=== PATIENT | female | born 1930 | race Caucasian/White ===

== ENCOUNTER 2016-11-28 17:50 | Inpatient (IN) | payer MEDICARE ==
[~2016-11-28] VITALS: Ht 152.4 cm; Wt 72.3 kg
--- NOTE | ~2016-11-28 | HP ---
PATIENT'S NAME: BASIA LACKEY [facility] AGE: 86 Y [address] ROOM: [place] [address] LOCATION: GPCU ADMIT DATE: 11/28/2016 History & Physical DISCHARGE DATE: FAMILY PHYSICIAN: JILLIAN CHAMBERS MD ATTENDING PHYSICIAN: JILLIAN CHAMBERS DATE OF SERVICE: CHIEF COMPLAINT: Shortness of breath. HISTORY OF PRESENT ILLNESS: The patient is an 86-year-old white female with a known hypertension, coronary disease, and atrial fibrillation who in the last couple days became more short of breath. There was some question as to whether she dropped back on her diuretics. She was taking it sounds like 2 Dyazide a day, but dropped back to one recently. She was seen in the emergency room Dr. Vásquez, see ER note. I reviewed her EKG that shows atrial fibrillation, rate controlled, no acute changes. I reviewed her chest x-ray that shows cardiomegaly but no ulises signs of severe CHF. Her BNP here was 478. Her white count is 5600, hemoglobin 13.9. PT and INR normal. Cardiac enzymes negative for acute TX. Potassium 3.5, sodium 137, BUN of 16, creatinine 1.4. At this point, we will admit to the hospital with a diagnosis of flare, congestive heart failure, probably acute on chronic diastolic. I asked them to go to Cardiology in the morning. I have ordered IV Lasix for the morning, we will continue her home medications. Place her on Lovenox to prevent DVT and order an echocardiogram for the morning. She and her son understand this plan and wished to proceed. The patient when I see her feels better after coming to the emergency room. She is not complaining of chest pain at this point. MEDICINES: Have been reviewed. ALLERGIES: SEE NURSE'S NOTES. PREVIOUS OPERATIONS: See old records including stent placement in the past for coronary artery disease. See recent cath reports. SOCIAL HISTORY: Does not smoke. PATIENT'S NAME: BASIA LACKEY [facility] AGE: 86 Y [address] ROOM: [place] [address] LOCATION: GPCU ADMIT DATE: 11/28/2016 History & Physical DISCHARGE DATE: FAMILY PHYSICIAN: JILLIAN CHAMBERS MD ATTENDING PHYSICIAN: JILLIAN CHAMBERS FAMILY HISTORY: Noncontributory. REVIEW OF SYSTEMS: Positive for the above. PHYSICAL EXAMINATION: GENERAL: Blount-haired female who appears her stated age. Sitting quietly in the emergency room. VITAL SIGNS: Her blood pressure is 180/70, pulse is 80 and regular, respirations 12. Her O2 saturation on room air is normal. Temp is normal. HEENT: Shows she wears glasses. Pupils react to light. TMs not visualized. Posterior pharynx clear. NECK: Unremarkable. I do not see any JVD. Thyroid enlarged. I did not listen for carotid bruit. LUNGS: Clear anteriorly. HEART: Shows a regular rhythm without murmur. BREASTS: Exam not done. ABDOMEN: Soft without point tenderness or mass. PELVIC/RECTAL: Exam not done. EXTREMITIES: Unremarkable. Just a trace edema in her ankles. NEUROLOGIC: Grossly intact without lateralizing signs. Cranial nerves intact. Mood is normal for age. ASSESSMENT: 1. Increasing shortness of breath/dyspnea on exertion secondary to flare of congestive heart failure, acute on chronic diastolic. 2. Mild hypokalemia. 3. Atrial fibrillation. 4. Hypertension, essential. 5. Coronary artery disease with stent placed in the past. PLAN: As above. JILLIAN CHAMBERS MD SPRAY PILOT/modl /[id number] D: [id number] T: [id number] HISTORY & PHYSICAL
--- NOTE | ~2016-11-28 | DS ---
PATIENT'S NAME: BASIA LACKEY [facility] AGE: 86 Y [address] ROOM: [place] [address] LOCATION: GPCU ADMIT DATE: 11/30/2016 Discharge Summary DISCHARGE DATE: 12/01/2016 FAMILY PHYSICIAN: Fish Chambers MD ATTENDING PHYSICIAN: Fish Chambers FINAL DIAGNOSES: 1. Shortness of breath secondary to exacerbation of diastolic congestive heart failure, acute on chronic. 2. Hypertension, essential. 3. Atrial fibrillation. HOSPITAL COURSE: The patient was admitted with increasing shortness of breath. In the emergency room, acute myocardial infarction was ruled out. Because of her shortness of breath with exertion, she was admitted to the hospital, and at my request, she was seen by Dr. Charlie Colbert, victim witness administrator, her echocardiogram was noted. She improved and lost weight here with IV diuresis. Her blood pressure was up the day prior to dismissal, so she stayed an extra day. Prior to going home, her shortness of breath has improved. Her weight has come down. She has no chest pain. She is dismissed on the med list shown. She is asked to see me back in the office in 2 weeks. She is to call earlier if she has shortness of breath or chest pain. She is dismissed on a 2 g sodium diet and activity as tolerated. FISH CHAMBERS MD MONITORING SPECIALIST/modl /[id number] d: 12/01/16 2350 t: 12/07/16 1835, DISCHARGE SUMMARY
--- NOTE | ~2016-11-28 | ER ---
PATIENT'S NAME: BASIA LACKEY [facility] AGE: 86 Y [address] ROOM: [place] [address] LOCATION: GPCU ADMIT DATE: 11/28/2016 ER/Outpatient Report DISCHARGE DATE: FAMILY PHYSICIAN: JILLIAN CHAMBERS MD ATTENDING PHYSICIAN: JILLIAN CHAMBERS Time of Arrival: 1750 hours. Time of Evaluation: 1805 hours. CHIEF COMPLAINT: This is an 86-year-old female with multiple medical problems. She is in with complaint of chest discomfort. HISTORY OF PRESENT ILLNESS: The patient reports that she has had an exertional chest pressure or tightness for the past 24 hours. She states that getting up to exert herself, she can walk about 20 steps and then she has to rest due to shortness of breath. PAST MEDICAL HISTORY: Significant for congestive heart failure. She has recently decreased the dose of her diuretic. She also has a history of coronary artery disease, previous cardiac stents, hypertension, and atrial fibrillation. CURRENT MEDICATIONS: See list. REVIEW OF SYSTEMS: She states that for the past week, she has not felt well, been slightly more short of breath than usual. SOCIAL HISTORY: She is a nonsmoker. PHYSICAL EXAMINATION: GENERAL: An alert, elderly female, in no acute distress. VITAL SIGNS: Stable. SKIN: Warm and dry. Color is normal. HEAD, EARS, EYES, NOSE, AND THROAT: Normal. NECK: Supple. She had mild jugular venous distention. HEART: She had irregular rhythm without murmur. LUNGS: She had rales audible in the right base. ABDOMEN: Soft and nontender. EXTREMITIES: Normal. NEUROLOGIC: Normal. PATIENT'S NAME: BASIA LACKEY [facility] AGE: 86 Y [address] ROOM: [place] [address] LOCATION: GPCU ADMIT DATE: 11/28/2016 ER/Outpatient Report DISCHARGE DATE: FAMILY PHYSICIAN: JILLIAN CHAMBERS MD ATTENDING PHYSICIAN: JILLIAN CHAMBERS LABORATORY DATA AND X-RAYS: EKG reveals atrial fib with a nonspecific intraventricular conduction delay and no acute ST or T-wave changes. Cardiac enzymes were negative. CBC was unremarkable. Comprehensive metabolic profile revealed slightly elevated creatinine of 1.4. Cardiac enzymes revealed CK-MB was 4.2, which is slightly elevated. Troponin was negative. BNP was elevated at 478. Chest x-ray is negative by my interpretation. EMERGENCY DEPARTMENT COURSE: Dr. Chambers was called, who arrived promptly, evaluated the patient, and made arrangements to admit the patient. ASSESSMENT: 1. Chest pain. 2. Congestive heart failure. PLAN: Admit to Dr. Chambers. BIENVENIDO CAMPOS MD JDB/modl /[id number] d: 11/30/16420 t: 11/30/16440, OUTPATIENT REPORT
--- NOTE | ~2016-11-28 | ECHO ---
Transthoracic Echocardiography Report (TTE) Demographics Patient Name BASIA LACKEY Date of Study 11/29/2016 Patient Number [id number] Visit Number [id number] Date of 1930 Room Number G6302 Accession Number [id number] Gender Female Age 86 year(s) Referring Filemon Guerra MD Assembler Knife Yvon Haney RVT Physician Wanda Quezada MD Physician Interpreting Fileomn Guerra MD Building Drafting Officer Physician Supervising Ordering Physician Filemon Guerra MD, MD/MLP Nurse Stress Chief Underwriter Conclusions Contractility Score Summary Normal Left Ventricular contractility was noted. Summary The estimated left ventricular ejection fraction is 55%. Mild to moderate concentric left ventricular hypertrophy. Diastolic assessment reveals Grade I diastolic dysfunction. Mildly reduced right ventricular function. Mild mitral annular calcification. Mild calcification of the mitral valve. Mild mitral regurgitation by color Doppler. The aortic valve is mildly sclerotic. There is trivial aortic regurgitation by color Doppler. Procedure Type of Study TTE procedure:2D Echocardiogram, M-Mode, Doppler , Color Doppler. Procedure Date Date: 11/29/2016 Start: 12:42 PM Study Location: Inpatient Portable Technical Quality: Adequate visualization Indications:Chest discomfort. Appropriate Use Criteria: 9 Patient Status: Routine HR: 52 bpm BP: 179/80 mmHg Allergies - Other:(corticosteroids, methylprednisolne). M-Mode/2D Measurements LV Diastolic Dimension: 3.23 cm LV Systolic Dimension: 2.54 cm LV Septum Diastolic: 1.77 cm LV PW Diastolic: 1.81 cm AO Root Dimension: 2.4 cm Cardiac Output: 2.21 l/min AV Cusp Separation: 1.7 cm RV Diastolic Dimension: 2.47 cm LVOT: 1.9 cm LVOT VTI: 15 cm RV Base: 1.66 cm LV Stroke volume: 42.51 ml RV Length: 5.09 cm TAPSE: 1.3 cm TDI-S': 14.5 cm/s Doppler Measurements AV Peak Velocity: 0.94 m/s MV Peak E-Wave: 0.58 m/s AV Peak Gradient: 3.53 mmHg MV Peak A-Wave: 0.81 m/s AV Mean Gradient: 2 mmHg MV E/A Ratio: 0.72 LVOT Peak Velocity: 0.67 m/s MV P1/2t: 62 msec PV Peak Velocity: 0.76 m/s E' Septal Velocity: 0.05 m/s PV Peak Gradient: 2.31 mmHg E' Lateral Velocity: 0.04 m/s A' Septal Velocity: 0.08 m/s A' Lateral Velocity: 0.08 m/s Findings Left Ventricle Mild to moderate concentric left ventricular hypertrophy. Diastolic assessment reveals Grade I diastolic dysfunction. Right Ventricle Normal right ventricle structure and function. Left Atrium Normal left atrial size. Right Atrium Normal right atrial size. Mitral Valve Mild mitral annular calcification. Mild calcification of the mitral valve. Mild mitral regurgitation by color Doppler. Aortic Valve The aortic valve is mildly sclerotic. There is trivial aortic regurgitation by color Doppler. Tricuspid Valve Normal tricuspid valve structure and function. Pulmonic Valve Mild pulmonic valve regurgitation by color Doppler. Pericardial Effusion No evidence of pericardial effusion. Miscellaneous Visualized portions of the aortic root and ascending aorta appear normal in size. Pleural Effusion No evidence of pleural effusion. Contractility Score LV regional wall motion:(0-Non visualized 1-Normal 2-Hypokinesis 3-Akinesis 4-Dyskinesis 5-Aneurysm) Signature dtt: Charlie Colbert (cardio) dtd: 11/29/16 1242 Physician Self Edit
--- NOTE | ~2016-11-28 | ESTC ---
Cardiac Perfusion Imaging Demographics Patient Name ZIYAD Mabry Gender Female Patient Number [id number] Race Visit Number [id number] [place] [id number] Room Number G6302 Accession Number [id number] Height 60 inches Date of 1930 Weight 159 pounds Physician Wanda Quezada MD Interpreting Filemon Guerra MD Date of study 11/30/2016 Physician Supervising /LISA BARDALES Technologist Shakila Manrique APRN Ordering Physician Filemon Guerra MD Stress Vrtiska Kevin RVT, animal health technician RDCS Stress ECG Reading Karly Nogueira Nurse Harley Mabry Physician PEDRITO stretch machine operator Procedure Type: Nuclear Stress Test:Pharmacological, Cardiolite Stress Test Procedure Start time: 11/30/2016 07:25 Indications: Chest discomfort and Hypertension. Risk Factors The patient risk factors include:prior PCI on 02/19/2016;treated hypercholesterolemia, treated hypertension and prior heart failure . Conclusions Summary Cardiolite SPECT imaging demonstrates homogenous uptake of radioactive tracer. No evidence of reversible defect and no evidence of underlying fixed defect. TID is grossly normal. Gated images demonstrate normal left ventricular systolic function without inducible wall motion abnormalities. LVEF is 59% Stress Protocols Resting ECG Normal sinus rhythm. Resting HR:63 bpm Resting BP:200/83 mmHg Pre-stress physical exam: Very Hypertensive in the Hospital. Stress Protocol:Pharmacologic Peak HR:7 bpm HR response: Appropriate Predicted HR: 133 bpm BP response: Appropriate % of predicted HR: 5 Reason for termination:Infusion complete ECG Findings No ECG changes suggestive of ischemia. Arrhythmias No rhythm abnormality. Symptoms No symptoms with Lexiscan infusion. Stress Interpretation Appropriate hemodynamic response to Lexiscan. No significant ST-T wave changes with Lexiscan. ECG portion is negative for ischemia by diagnostic criteria. Stress supervision and interpretation provided by Yolanda Brandt APRN . Imaging Results Summed scores - Summed stress score: 21 - Summed rest score: 19 - Summed difference score: 2 Stress ejection Ejection fraction:59 % EDV :116 ml ESV :48 ml Stroke volume :68 ml LV mass :129 gr Imaging Protocols Rest Stress Isotope:Tc99m Sestamibi IV Isotope: Tc99m Sestamibi IV Isotope dose:11.7 mCi Isotope dose:36.5 mCi Date:11/30/2016 06:56 Date:11/30/2016 08:23 Technique: SPECT Technique: Gated Supine SPECT Supine IV remains in place after procedure. Scan Time:30 minutes post injection Scan Time:45-60 minutes post injection Procedure Medications - Regadenoson (Lexiscan) 0.4 mg IV over 10-15 sec. I.V. 0.4 mg. Medical History Admission Data Admission date: 11/30/2016 Admission Time: 13:00 Hospital Status: Inpatient. Signatures dtt: Charlie Colbert (cardio) dtd: 11/30/16 0725 Physician Self Edit
--- NOTE | ~2016-11-28 | CON ---
PATIENT'S NAME: BASIA LACKEY [facility] AGE: 86 Y [address] ROOM: [place] [address] LOCATION: GPCU ADMIT DATE: 11/30/2016 Consultation DISCHARGE DATE: FAMILY PHYSICIAN: JILLIAN MUÑOZ MD ATTENDING PHYSICIAN: JILLIAN MUÑOZ REFERRING PHYSICIAN: Narciso Ocampo MD REFERRING PHYSICIAN: Jillian Muñoz MD. REASON FOR CONSULT: Chest discomfort and shortness of breath. HISTORY OF PRESENT ILLNESS: This is an 86-year-old female, well known to Dr. Ocampo with history of coronary artery disease, chronic kidney disease, and paroxysmal atrial fibrillation. She reports that she has been experiencing some exertional chest tightness for the past 24 hours. She states that getting up to exert herself, she can only walk about 20 steps and that she is more short of breath as well. She was found to be quite hypertensive in the emergency room. She was also noted to be in an atrial fibrillation at that time, but shortly converted. Her initial cardiac enzymes were normal. She had not been complaining of orthopnea, PND, or peripheral edema. Her O2 sats were 97% on room air. PAST MEDICAL HISTORY: 1. Paroxysmal atrial fibrillation. 2. High-risk medications-amiodarone. 3. Hypertension. 4. Coronary artery disease. 5. Chronic kidney disease. 6. History of DVT. 7. Nocturnal hypoxia wearing O2 at h.s. 8. Spinal stenosis. 9. Arthritis. 10. Anxiety. PAST SURGICAL HISTORY: 1. She has had a left heart catheterization, 02/22/2016, with PTCI at the posterolateral branch with stent. 2. Left heart catheterization, 11/30/2008 with a patent stent to the left circumflex, medical therapy recommended. 3. Left heart catheterization, 12/12/2005, PTCI and had a stent at the left circumflex. 4. Left heart catheterization, 07/10/2003, and PTCI and a stent to LAD. 5. Left heart catheterization 12/01/2002, nonsignificant coronary artery PATIENT'S NAME: BASIA LACKEY [facility] AGE: 86 Y [address] ROOM: [place] [address] LOCATION: GPCU ADMIT DATE: 11/30/2016 Consultation DISCHARGE DATE: FAMILY PHYSICIAN: JILLIAN MUÑOZ MD ATTENDING PHYSICIAN: JILLIAN MUÑOZ disease. 6. Back surgery. 7. Hysterectomy, 01/17/2013. 8. Bilateral cataract. 9. Right shoulder surgery. ALLERGIES: NONE TO MEDICATION. HOME MEDICATIONS: 1. Amiodarone 200 mg every day. 2. Aspirin 81 mg every day. 3. Lipitor 40 mg every day. 4. Plavix 75 mg every day. 5. Levothyroxine 50 mcg every day. 6. Maxzide 75 mg 1 tablet every day. 7. Valsartan-hydrochlorothiazide 320 mg 1/2 tablet daily. FAMILY HISTORY: Father at the age of 53, he of pneumonia. Mother at the age of 82, kidney failure and heart failure. She has a brother who has leukemia and another brother who had lung cancer. SOCIAL HISTORY: She is a lifelong nonsmoker. Does not use alcohol she reports. REVIEW OF SYSTEMS: HEENT: Head: No history of headache. Eyes: She wears corrective lenses. Ears: No problems with hearing, but she does wear bilateral hearing aids. Nose: No problems with epistaxis or rhinorrhea. Mouth: No gingival bleeding. Throat: Denies sore throat, hoarseness, or difficulty swallowing. PULMONARY: She has been a little more short of breath with wheezing. GI: Negative for nausea, vomiting, or diarrhea. No melena or hematochezia. No history of elevated liver enzymes or yellow jaundice. GENITOURINARY: Positive for urinary incontinence with leakage. No history of urinary tract infection. Skin: She does have problems with dermatitis at times. PSYCHIATRIC: She has problems with anxiety. PHYSICAL EXAMINATION: VITAL SIGNS: She is 5 feet tall, weighs 161 pounds, blood pressure was 216/94, heart rate 66, respirations 19, and temperature is 97.5. SKIN: Warm, dry, and pink. HEENT: Pupils equal, round, and react briskly. NECK: Soft and supple. No lymphadenopathy. PATIENT'S NAME: BASIA LACKEY [facility] AGE: 86 Y [address] ROOM: [place] [address] [facility] ADMIT DATE: 11/30/2016 Consultation DISCHARGE DATE: FAMILY PHYSICIAN: JILLIAN MUÑOZ MD ATTENDING PHYSICIAN: JILLIAN MUÑOZ LUNGS: Sounds now are clear with a few rales noted in the bases. CV: Regularly irregular. ABDOMEN: Soft. Bowel sounds are present. EXTREMITIES: No peripheral edema. ASSESSMENT: 1. Uncontrolled hypertension. Her medications were adjusted for better blood pressure control. 2. Chest pain. We will schedule her for a Lexiscan Cardiolite stress test as well as an echocardiogram. 3. Paroxysmal atrial fibrillation. She will continue with the amiodarone therapy. 4. Hypothyroidism. She is to continue with her current home medications. The assessment and plan, history of present illness, and physical exam are per Dr. Narciso Ocampo. Further recommendations will be forthcoming as information becomes available. We would like to thank Dr. Jillian Muñoz for allowing us to participate in this patient's care. CAN ZAVALA APRN FOR NARCISO OCAMPO MD TGP/modl /[id number] d: 11/30/16 1757 t: 12/07/16 1001, CONSULTATION REPORT
[~2016-11-28 17:50] MED LIST: ASPIRIN LO-DOSE81 MG PO; CORDARONE,PACE200 MG PO; LIPITOR40 MG PO; MAXZIDE-751 TAB PO; NORVASC5 MG PO; PLAVIX75 MG PO; VALSARTAN-HCTZ1 EAC3 PO
[2016-11-28 19:01] LABS: BASOPHIL # 0.1 K/uL (0.0-0.2); BASOPHIL % 1.3 %; EOSINOPHIL # 0.2 K/uL (0.0-0.5); EOSINOPHIL % 2.9 %; HEMATOCRIT 41.8 % (30.0-46.0); HEMOGLOBIN 13.9 g/dL (10.0-15.0); IMMATURE GRANULOCYTE % 0.2 %; LYMPHOCYTE # 1.1 K/uL (0.8-4.0); LYMPHOCYTE % 18.9 %; MCHC 33.3 gm/dL (32.0-36.5); MCV 93.3 fl (83.0-98.0); MONOCYTE # 0.4 K/uL (0.0-1.0); MONOCYTE % 7.4 %; MPV 9.6 fl (9.4-12.4); NEUTROPHIL # (ANC) 3.9 K/uL (1.8-7.8); NEUTROPHIL % 69.3 %; NRBC % 0 /100WBC (0-0.00); PLATELET COUNT 279 K/uL (150-450); RBC 4.48 M/uL (3.00-5.00); RDW-CV 13.4 % (11.9-14.6); WBC 5.6 K/uL (4.0-11.0)
[2016-11-28 19:09] LABS: PROTIME 10.1 SECONDS (9.6-11.1); PTT 27 SECONDS (25-32)
[2016-11-28 19:19] LABS: ALBUMIN 3.6 gm/dL (3.5-5.0); ALK PHOS 80 IU/L (33-138); ALT 38 IU/L (12-78); ANION GAP 14.5 (10.0-19.0); AST 32 IU/L (10-40); BLOOD UREA NITROGEN 16 mg/dL (6-24); CHLORIDE 101 mMol/L (96-110); CO2 25 mMol/L (22-32); CPK 134 IU/L (21-215); CREATININE 1.4 mg/dL (0.5-1.1); ESTIMATED GFR (MDRD EQUATION) 36; MAGNESIUM 1.9 mg/dL (1.3-2.6); POTASSIUM 3.5 mMol/L (3.7-5.1); SODIUM 137 mMol/L (135-145); TOTAL BILIRUBIN 0.5 mg/dL (0.0-1.5); TOTAL PROTEIN 6.8 g/dL (6.0-8.4)
[2016-11-28] MEDS ORDERED: LEVOTHROID (SY50 MCG PO (21:40)
[2016-11-28] MEDS ORDERED: OXYGEN M-15 INH (21:48)
--- NOTE | 2016-11-29 00:47 | NUR ---
Patient came into the ER with c/o increased shortness of breath with activity. Patient admitted to PCU with CHF. Patient able to ambulate from cart to bathroom to bed with 1 assist. Very short of breath with audible wheezes with exertion. Initial BP 216/94. Dr. Drake and Dr. Colbert notified. 40mg IV lasix given. See chart for additional orders. Patient has a history of A-fib, HTN, CHF, CAD, unstable angina, and history of heart caths with 4 stents. Family at bedside. Plan of care explained.
--- NOTE | 2016-11-29 04:52 | NUR ---
Significant Event: Alert and oriented X3. SBP 200's on admission. 40mg IV lasix given with order to start nitro if SBP didn't decrease. Nitro gtt started at 0020 at 5mcg/min. SBP now 130-160. Order to keep SBP less than 160. Tylenol at 2330 for c/o headache. Relief noted. 1900 urine output. Up with 1 assist. Does get short of breath with audible wheezes when ambulating. Slightly improved after IV lasix last night. RA. Patient is to wear 2L at night at home, but states she does not like it. Rested well. Follow up: Continue to monitor blood pressure, urine output and resp. status.
[2016-11-29 06:02] LABS: ALBUMIN 3.4 gm/dL (3.5-5.0); ANION GAP 12.7 (10.0-19.0); CALCIUM 8.9 mg/dL (8.5-10.5); CREATININE 1.4 mg/dL (0.5-1.1); MAGNESIUM 1.9 mg/dL (1.3-2.6); PHOSPHORUS 3.4 mg/dL (2.5-4.9); POTASSIUM 3.7 mMol/L (3.7-5.1)
--- NOTE | 2016-11-29 17:58 | NUR ---
Significant Event:Patient has been pretty comfortable throughout shift. Nitro to be weaned off, but SBP is labile. Family at bedside throughout shift. Had echo today. Had a small dose of Norvasc. Had 40 mEq of KCl this am and 30mEq later today. Follow up:Miguel tomorrow
--- NOTE | 2016-11-30 04:52 | NUR ---
Significant Event: Alert and oriented X3. RA. HR's 50's-60's. SBP 170's with first assessment. Nitro gtt continued at 5. Had to increase nitro gtt to 10 mcg/min at 2200 for SBP's in the 190's. Patient seems to get very anxious when family in room. Her son is upset with her decision to have lexiscan today and her decision to be a DNR. She also seems to be apprehensive to make her own decisions when family is present. After increasing the nitro family was asked to let her rest. Nitro was decreased back to 5 mics at 2320 and discontinued at 0230 due to order to try to wean off. SBP since discontinueing have been 120's -140's. Patient has been NPO since midnight for lexiscan today. Lung sounds clear/dim. Does still get short of breath with ambulation, but audible wheezes when ambulating have improved. Up with gait belt and 1 assist. Follow up: Lexiscan today. Continue to monitor blood pressure and resp. status.
[2016-11-30 04:58] LABS: ALBUMIN 3.2 gm/dL (3.5-5.0); ANION GAP 12.8 (10.0-19.0); CALCIUM 8.7 mg/dL (8.5-10.5); CREATININE 1.4 mg/dL (0.5-1.1); PHOSPHORUS 3.4 mg/dL (2.5-4.9); POTASSIUM 3.8 mMol/L (3.7-5.1)
--- NOTE | 2016-11-30 09:10 | NUR ---
VISITED WITH PATIENT ABOUT HER IMMUNIZATIONS. PATIENT STATES SHE WANTS TO "RECIND THE DNR". PRINTED HER ADVANCED DIRECTIVE FOR HER REVIEW. IT DOES STATE PATIENT WANTS TO HAVE EVERYTHING DONE UNTIL THERE IS A POINT THAT "NO HOPE" IS INEVITABLE. DID REVIEW WITH PATIENT. ALSO REPORTED TO EMILIE TOMPKINS, PATIENT'S NURSE ABOUT PATIENT WISHES.
--- NOTE | 2016-11-30 11:42 | NUR ---
Introduced self and care management services to patient. Lives in [place] with son and daughter in law. Denies concerns about going home on discharge, denies needs. Says someone is around most of the time if she needs assistance. Wine Merchant will follow.
--- NOTE | 2016-11-30 19:07 | NUR ---
PATIENT HAD STRESS TEST TODAY. STRESS TEST WAS NEGATIVE PER DR. OCAMPO. PATIENT RESTED AND SLEPT MOST OF DAY. AT 1700 PATIENT PATIENTS BLOOD PRESSURE 155/75 AMBULATED IN YIP BLOOD PRESSURE 206/93. CLONIDINE 0.1MG GIVEN AND WILL RECHECK IN APROX. AN HOUR. DR. CHAMBERS HERE AND AWARE OF BLOOD PRESSURE.
--- NOTE | 2016-12-01 05:26 | NUR ---
Significant Event:A/Ox3. Afebrile. HR 40-60s. SBP 100-170s, printed vitals on chart for MD. Medications changes at shift change per increased clonidine to 0.2mg BID (only gave 0.1mg to make a total of 0.2mg), started hydralazine 12.5mg Q8H (called MD for parameters d/t SBP 130s) no dose ever given, and increased maxid in the AM. HR steadily decreased throughout the night with the lowest being 40 patient did c/o of lightheadedness and dizziness, and dry mouth. Requested juice. Checked a blood sugar and got 124. Slightly unsteady with transfers. Follow up:Monitor HR/rhythm.
[2016-12-01] MEDS ORDERED: [UNRECOGNIZED DRUG - OTHER] PO (13:27)
[2016-12-01] MEDS ORDERED: K-TAB 10MEQ10 MEQ PO (13:28)
[2016-12-01] MEDS ORDERED: TRIAMTERENE-HC1 EAC1 PO (13:31)
[2016-12-01] MEDS ORDERED: TYLENOL325 MG PO (13:35)
[2016-12-01] MEDS ORDERED: NITROSTAT0.4 MG SL (13:37)
[2016-12-01] MEDS ORDERED: CATAPRES0.2 MG PO (13:39)
--- NOTE | 2016-12-01 15:08 | NUR ---
Introduced self and purpose of heart healthy education and care transitions. Calendar given, information reviewed, verbalized understanding.
--- NOTE | 2016-12-01 15:44 | NUR ---
d-dr darling pt dc i-nurse called cardio yodit Deutsch to ask about pulse 40s and got new order changes, iv dcd intact, sbp ok right now, pt amb adams 2 times and tolerated ok just alittle short of breath but 02 sat >90, hrs 60s now mostly, Appts made and cards given, info printed on meds to pt, ta took pt to daughter car per wc r-pt and daughter have no more questions p-out to car no problem
== END 2016-12-01 17:00 | disposition disaster alternative care site (69) | DRG 304 ==
LOC: GMED 17:50 → GPCU 20:04
PROVIDERS: Emergency Medicine; Internal Medicine Interventional Cardiology; ADMIT Family Medicine
DX: I16.0 Hypertensive urgency (principal); I50.33 Acute on chronic diastolic (congestive) heart failure; I48.0 Paroxysmal atrial fibrillation; G47.34 Idiopathic sleep related nonobstructive alveolar hypoventilation; I12.9 Hypertensive chronic kidney disease with stage 1 through stage 4 chronic kidney disease, or unspecified chronic kidney disease; R07.9 Chest pain, unspecified; I25.10 Atherosclerotic heart disease of native coronary artery without angina pectoris; Z95.5 Presence of coronary angioplasty implant and graft; E87.6 Hypokalemia; N18.9 Chronic kidney disease, unspecified; Z86.718 Personal history of other venous thrombosis and embolism; Z79.02 Long term (current) use of antithrombotics/antiplatelets; E03.9 Hypothyroidism, unspecified; Z66 Do not resuscitate; Z79.82 Long term (current) use of aspirin
CPT/HCPCS: A9270; A9500; G0378; J1650; J1940; J2785; J7050

== ENCOUNTER 2016-12-21 10:13 | Observation (INO) | payer MEDICARE ==
[~2016-12-21] VITALS: Ht 152.4 cm; Wt 74.2 kg
--- NOTE | ~2016-12-21 | CON ---
PATIENT'S NAME: BASIA LACKEY [facility] AGE: 86 Y [address] ROOM: [id number] [place], [place] [address] LOCATION: GPCU ADMIT DATE: 12/21/2016 Consultation DISCHARGE DATE: 12/24/2016 FAMILY PHYSICIAN: Fish Muñoz MD ATTENDING PHYSICIAN: Fish Muñoz DATE OF CONSULTATION: 12/23/2016 REFERRING PHYSICIAN: Charlie Colbert MD INDICATION: Dyspnea on exertion. HISTORY OF PRESENT ILLNESS: This is an 86-year-old female, admitted for chest pain, near syncope, and dyspnea on exertion. She reports near syncope twice, one of which occurred in the ER. There were no arrhythmias reported while she was on telemetry, but apparently she became hypotensive and symptoms improved with 1 L of fluid. She was subsequently taken to the slabbing machine operator and had a left heart catheterization, which was negative. CT of the chest was done, which showed no heart failure or pneumonia. There was a stable nodule noted since 2012. She has a history of CAD with PCI, PAF on amiodarone for several years and stopped on Wednesday, December 18, 2016. She also has history of diastolic heart failure with an EF last reported at 55%. She was previously in the hospital in November for a CHF exacerbation. Her BNP this admission was 184. The patient reports dyspnea on exertion for the last several years and slightly worse over the last year. Her daughter reports that she feels that her shortness of breath has worsened more so in the last few months. She has noted wheezing when she is out walking with her. She denies any history of asthma, COPD, or PE, DVT, or tobacco use. She has never tried inhalers. She was started on oxygen last year 2 L at night for CHF. She reports excessive daytime sleepiness and snoring. She has refused a sleep study in the past. She denies any hemoptysis, paroxysmal nocturnal dyspnea, orthopnea, or edema. She has an occasional cough with clear sputum. She has intermittent nasal drainage. PAST MEDICAL HISTORY: Includes paroxysmal AFib, off amiodarone now since December 18, 2016; hypertension; CAD; CKD; history of DVT; nocturnal hypoxia, wearing oxygen at night; chronic diastolic heart failure; spinal stenosis; arthritis; and anxiety. ALLERGIES: SEE NOV. MEDICATIONS: See NOV. PATIENT'S NAME: BASIA LACKEY [facility] AGE: 86 Y [address] [place] [facility] [place] [address] LOCATION: GPCU ADMIT DATE: 12/21/2016 Consultation DISCHARGE DATE: 12/24/2016 FAMILY PHYSICIAN: Fish Muñoz MD ATTENDING PHYSICIAN: Fish Muñoz FAMILY HISTORY: Her father at the age of 53 of pneumonia. Her mother at the age of 82 of kidney failure. She had a brother who of leukemia and another brother who of lung cancer. SOCIAL HISTORY: She denies any tobacco use. REVIEW OF SYSTEMS: A 12-point review of systems was negative except what is noted in the HPI. PHYSICAL EXAMINATION: VITAL SIGNS: Blood pressure 140/63, pulse 58, respirations 21, temperature 98.0, weight 74.2 kg. GENERAL: This is a well-developed, well-nourished, 86-year-old female, who is alert and oriented x3 and appears in no acute distress at the time of exam. HEENT: Head: Normocephalic and atraumatic. Eyes: Clear. NECK: Supple. No adenopathy. No carotid bruits or JVD. LUNGS: A few scattered wheezes. HEART: Regular rhythm with sinus bradycardia. No murmur, gallop, or rub. ABDOMEN: Soft, nontender, nondistended. Bowel sounds x4. EXTREMITIES: No cyanosis, clubbing, or edema. DIAGNOSTIC DATA: Sodium 137, potassium 3.7, bicarb 29, BUN 27, creatinine 1.3. WBC 6.4, hemoglobin 13.7, hematocrit 41, platelets 277. ASSESSMENT: 1. Dyspnea on exertion, probably multifactorial from elevated blood pressure and diastolic dysfunction. However, we cannot exclude reactive airway disease component. 2. Nocturnal hypoxia. 3. Excessive daytime sleepiness. 4. Suspected obstructive sleep apnea. 5. Hypertension, uncontrolled. PLAN: We will order PFTs and 6-minute walk to further evaluate other components of dyspnea on exertion other than the diastolic dysfunction and hypertension. We also checked an overnight oximetry on 2 L tonight to evaluate oxygen needs. Recommend more aggressive blood pressure control at this time. Thank you for the consult and opportunity to participate in the patient's care. PATIENT'S NAME: BASIA LACKEY [facility] AGE: 86 Y [address] ROOM: [address] [address] [facility] AD[facility] DATE: 12/21/2016 Consultation DISCHARGE DATE: 12/24/2016 FAMILY PHYSICIAN: Fish Muñoz MD ATTENDING PHYSICIAN: Fish Muñoz ALEC SCOTT APRN FOR PAUL OLIVEROS MD [facility]/modl /[id number] d: 01/20/17 0053 t: 01/28/17 1624, CONSULTATION REPORT
--- NOTE | ~2016-12-21 | HP ---
PATIENT'S NAME: BASIA LACKEY [facility] AGE: 86 Y [address] ROOM: [place] [address] LOCATION: GPCU ADMIT DATE: 12/21/2016 History & Physical DISCHARGE DATE: FAMILY PHYSICIAN: JILLIAN CHAMBERS MD ATTENDING PHYSICIAN: JILLIAN CHAMBERS DATE OF SERVICE: CHIEF COMPLAINT: Near passing out spell. HISTORY OF PRESENT ILLNESS: The patient is an 86-year-old white female from [place] of the [place], who is well known to me over the years. She presented to the emergency room today after having a near passing out spell at home and then dropped her blood pressure in the emergency room. Her nitroglycerin patch was taken off and she bought herself and taken into the hospital. She was just seen Wednesday in my office and also in the office of her middleware consultant, Dr. Charlie Colbert. At this point, she has been placed on PCU; when I see her, she is feeling fine with a blood pressure of 180/90. She has no focal neurologic abnormality. When I see her, she is not complaining of headache or chest pain. She had some chest pain in the emergency room. Long story short, from what I hear, she and Dr. Charlie Colbert are going to visit the catheterization lab tomorrow where she will undergo a diagnostic heart catheterization. I have reviewed the patient's labs and vital signs and ER workup at this point and defer to Dr. Colbert for further recommendations for evaluation and treatment. I do note that the patient's urine shows a few white blood cells, so I have asked the nurses to culture the urine and note that the patient will be placed on antibiotics at my request, Ceftin 250 mg twice a day, and we will adjust therapy based on her culture. She does not complain of symptoms of a UTI, but does have mild nausea. PAST MEDICAL HISTORY: Has been reviewed. See nurse's notes. MEDICATIONS: Have been reviewed. See nurse's notes. ALLERGIES: NOTED. NO ALLERGIES SPECIFIC TO CEPHALOSPORINS. SOCIAL HISTORY: Does not smoke. PATIENT'S NAME: BASIA LACKEY [facility] AGE: 86 Y [address] ROOM: [place] [address] LOCATION: GPCU ADMIT DATE: 12/21/2016 History & Physical DISCHARGE DATE: FAMILY PHYSICIAN: JILLIAN CHAMBERS MD ATTENDING PHYSICIAN: JILLIAN CHAMBERS FAMILY HISTORY: Noncontributory. IMMUNIZATIONS: Up to date. REVIEW OF SYSTEMS: HEENT: She wears glasses. She has had mild headache. No sore throat. No visual changes. ENDOCRINE: She is not diabetic. LUNGS: No history of asthma. HEART: As per the Cardiology notes. GI: Some nausea. No vomiting. No melena. No change in bowel habits. : As mentioned, no dysuria. EXTREMITIES: Pain of generalized osteoarthritis. NEUROLOGIC: No history of seizure, stroke, or syncope in the past. SKIN: No recent rashes. MENTAL STATUS: She is anxious about her health. PHYSICAL EXAMINATION: VITAL SIGNS: Pulse is 80, blood pressure 180/90, O2 saturation normal on room air, temperature is normal. HEENT: Pupils react to light. She wears glasses. TMs not visualized. Posterior pharynx is clear. NECK: I did not listen for carotid bruit. Thyroid enlarged. LUNGS: Clear. HEART: No murmur, gallop, or rub. ABDOMEN: Benign. No point tenderness. PELVIC/RECTAL: Not done. EXTREMITIES: Just trace edema in her ankles. NEUROLOGIC: Cranial nerves intact. No lateralizing signs. Mental status: She is anxious about her health. ASSESSMENT: 1. Near syncope x2, one time documented in the emergency room with no ulises cardiac arrhythmia. 2. Known coronary artery disease. 3. Hypertension, essential. PLAN: As above. PATIENT'S NAME: BASIA LACKEY [facility] AGE: 86 Y [address] ROOM: [id number] [place], [place] [address] LOCATION: GPCU ADMIT DATE: 12/21/2016 History & Physical DISCHARGE DATE: FAMILY PHYSICIAN: JILLIAN CHAMBERS MD ATTENDING PHYSICIAN: JILLIAN CHAMBERS JILLIAN CHAMBERS MD FRONT LINE SUPERVISOR/modl /[id number] D: [id number] T: [id number] HISTORY & PHYSICAL
--- NOTE | ~2016-12-21 | DS ---
PATIENT'S NAME: BASIA LACKEY [facility] AGE: 86 Y [address] ROOM: [facility] [place] [place], [place] [address] LOCATION: GPCU ADMIT DATE: 12/21/2016 Discharge Summary DISCHARGE DATE: 12/24/2016 FAMILY PHYSICIAN: Fish Muñoz MD ATTENDING PHYSICIAN: Fish Muñoz FINAL DIAGNOSES: 1. Near syncope. 2. Hypertension, essential, accelerated, present on admission. 3. Dyspnea on exertion, probably multifactorial. 4. Status post heart catheterization during admission. See Dr. Colbert's note. 5. Status post pulmonary function tests, read per Dr. Chou, see reports. 6. Generalized osteoarthritis. HOSPITAL COURSE: The patient was admitted after she had a near syncopal spell and had another spell in the emergency room. Please see emergency room notes. The patient was placed in PCU and seen at my request by her nurse healthcare manager Dr. Colbert, and then Dr. Colbert after getting her through a heart catheterization that was unremarkable asked that she be seen by Dr. Chou, the marketing performance analyst. I refer you to Dr. Colbert's catheterization notes and Dr. Chou's notes on the chart along with reports on the patient's pulmonary function tests. At the end of the day today, the patient is dismissed to home on diet as tolerated, activity as tolerated. She has been given instructions on using albuterol inhaler 2 puffs every 4 hours as needed. She is to follow up with Dr. Colbert in the office in a couple of weeks, see me in [address] Chou in a month. Here her evaluation at the heart catheterization showed no need for intervention. Rest of her workup is as noted. Prior to going home, when I see her, blood pressure is 148/70. She is asymptomatic. She ambulated in the hallways here without any near syncopal spells and has been documented here prior to dismissal that she is not having orthostatic hypotension. She and her daughter are comfortable sending her home. FISH MUÑOZ MD FIXED INCOME MANAGER/kenia PATIENT'S NAME: BASIA LACKEY [facility] AGE: 86 Y [address] ROOM: [place] [address] [facility] ADMIT DATE: 12/21/2016 Discharge Summary DISCHARGE DATE: 12/24/2016 FAMILY PHYSICIAN: Fish Muñoz MD ATTENDING PHYSICIAN: Fish Muñoz /[id number] d: 12/24/162052 t: 12/26/16 0928, DISCHARGE SUMMARY
--- NOTE | ~2016-12-21 | HP ---
PATIENT'S NAME: BASIA LACKEY [facility] AGE: 86 Y [address] ROOM: [address] [place], [place] [address] LOCATION: GPCU ADMIT DATE: 12/21/2016 History & Physical DISCHARGE DATE: FAMILY PHYSICIAN: JILLIAN CHAMBERS MD ATTENDING PHYSICIAN: JILLIAN CHAMBERS DATE OF SERVICE: REASON FOR ADMISSION: Lightheadedness, dizziness, presyncope. HISTORY OF PRESENT ILLNESS: This is an 86-year-old female who has been seen frequently in the clinic with complaints of shakiness and weakness. She has also been complaining of shortness of breath. She was seen last Wednesday for some of these symptoms and her amiodarone was stopped and she was initiated on Lasix and nitroglycerin patch. She felt good for about a day and then she has been having episodes where she will feel really shaky and lightheaded. This morning, her son took her blood pressure, it was in 140s/70s, she felt really good, then she got up and started doing some housework and called her son stating that she was not feeling very well. When he went to find her, the phone was still on sitting in her lap, she was very foggy, slow to respond, and pale. She has been complaining of some discomfort noted in the back between her shoulder blades, radiates down her left arm, some up into her neck and then she will have chest pressure. She has had some episodes of lightheadedness and dizziness and was placed on the Zio monitor and that result is still pending. On her last hospitalization, she had a stress test that did not show any provocable ischemia. When seen in the ER, her initial EKG showing a regular sinus rhythm, sinus bradycardia with heart rates in the 50s. She did have an episode where her blood pressure dropped into the 70s and she received a liter of fluid and now her blood pressures are in the 200 range. She denies orthopnea or PND. She has not had any problems with increased peripheral edema. She denies shortness breath at rest, but when she is walking, she is very short of breath and she does wheeze quite a bit. PAST MEDICAL HISTORY: 1. Paroxysmal atrial fibrillation, now off amiodarone. 2. Essential hypertension. 3. Coronary artery disease. 4. Chronic kidney disease. 5. History of DVT. 6. Nocturnal hypoxia, wearing O2 at h.s. 7. Spinal stenosis. 8. Arthritis. 9. Anxiety. PATIENT'S NAME: BASIA LACKEY [facility] AGE: 86 Y [address] ROOM: [id number] [place], [place] [address] [facility] ADMIT DATE: 12/21/2016 History & Physical DISCHARGE DATE: FAMILY PHYSICIAN: JILLIAN CHAMBERS MD ATTENDING PHYSICIAN: JILLIAN CHAMBERS PAST SURGICAL HISTORY: 1. Left heart catheterization, 02/22/2016, with PTCI and stenting of the posterolateral branch. 2. Left heart catheterization, 11/30/2008, with patent stent to the left circumflex and medical therapy recommended. 3. Left heart catheterization, 12/12/2005, with PTCI and stent, left circumflex. 4. Left heart catheterization, 07/10/2003, PTCA and stent to the LAD. 5. Left heart catheterization, 12/01/2002, showing non-significant coronary artery disease. 6. Back surgery. 7. Hysterectomy, 01/17/2013. 8. Bilateral cataract surgery. 9. Right shoulder surgery. ALLERGIES: NONE TO MEDICATION. HOME MEDICATIONS: 1. Nitroglycerin 0.4 mg transdermal patch, on in the morning and off in the evening. 2. Lasix 40 mg p.o. every a.m. 3. Aspirin 325 mg every day. 4. Atorvastatin 40 mg every day. 5. Levothyroxine 50 mcg every day. 6. Plavix 75 mg daily. 7. Triamterene and hydrochlorothiazide 37.5/25 mg every day. 8. Diovan HCT 320/25 mg once a day. FAMILY HISTORY: Father at the age of 53 of pneumonia. Mother at 82 of kidney failure. She had 1 brother who of leukemia and another brother who of lung cancer in his 50s. She has 3 sons and 6 daughters. She has never used tobacco, rarely drinks alcohol. REVIEW OF SYSTEMS: 12-point review was done with the following positives: CONSTITUTIONAL: Complains of being lightheaded, dizzy, weak. PULMONARY: She complaints of wheezing with walking and intermittent shortness of breath. NEUROLOGIC: She has had presyncope and syncopal episodes. PHYSICAL EXAMINATION: VITAL SIGNS: Blood pressure now is in the 200s/80s, her heart rate is 58-60, PATIENT'S NAME: BASIA LACKEY [facility] AGE: 86 Y [address] ROOM: [id number] [place], [place] [address] LOCATION: GPCU ADMIT DATE: 12/21/2016 History & Physical DISCHARGE DATE: FAMILY PHYSICIAN: JILLIAN CHAMBERS MD ATTENDING PHYSICIAN: JILLIAN CHAMBERS respirations are 24, and saturations are 94%. GENERAL: She does complain of some mild nausea. SKIN: Warm, dry, and pink. HEENT: Pupils equal, round, and react briskly. NECK: Soft and supple. No lymphadenopathy or thyromegaly. JVD is flat. LUNGS: Sounds are clear. CV: Regular with normal S1, S2, but is bradycardic. ABDOMEN: Soft. Bowel sounds are present. EXTREMITIES: No peripheral edema, no clubbing, and no cyanosis. LABORATORY DATA: Labs showed normal cardiac enzymes. Her hemoglobin is 13.7, hematocrit is 41, white count 6.9, and platelets are 277. BUN 31; creatinine 2.0, it had been 1.6; sodium 136; and potassium 3.4. ASSESSMENT: 1. Coronary artery disease. Dr. Ocampo will plan on a left heart catheterization in the morning with her continued left shoulder, neck, and chest discomfort. 2. Lightheadedness and dizziness. We will check orthostatic blood pressures. 3. Paroxysmal atrial fibrillation. She is now off amiodarone. We will see what her Zio monitor showed. She did have a TSH drawn on 12/04/2016, that was 3.6. 4. Nocturnal hypoxia. She will continue to wear oxygen at h.s. 5. Nausea. We will offer Zofran. If her heart catheterization is normal, she may need further workup. She still has her gallbladder. 6. Weakness and shakiness. She is off amiodarone. She is a little bit bradycardic. We will continue to monitor her and further recommendations will be forthcoming. 7. Acute on chronic kidney disease. We will continue half-normal saline and recheck a renal and a mag level in the morning. The assessment and plan, history of present illness, and physical exam are per Dr. Narciso Ocampo. Further recommendations will be forthcoming as information becomes available. CAN ZAVALA APRN FOR NARCISO OCAMPO MD [facility]/modl /[id number] D: [id number] T: [id number] HISTORY & PHYSICAL
--- NOTE | ~2016-12-21 | PUL ---
PATIENT'S NAME: BASIA LACKEY [facility] AGE: 86 Y [address] ROOM: [address] [address] [facility] AD[facility] DATE: 12/21/2016 Pulmonary DISCHARGE DATE: FAMILY PHYSICIAN: JILLIAN CHAMBERS MD ATTENDING PHYSICIAN: JILLIAN CHAMBERS NAME OF PROCEDURE: Overnight Pulse Oximetry DATE OF PROCEDURE: December 23 to December 24, 2016 REASON FOR EXAM: Nocturnal hypoxemia RESULTS: The test was performed on supplemental oxygen at 2 liters/minute. The recording time and total valid sampling time were 7 hours, 47 minutes, and 28 seconds. The highest pulse was 73, lowest pulse was 49, with a mean pulse of 55. The highest SpO2 was 100%, lowest SpO2 was 92%, with a mean SpO2 of 98.2%. The patient did not spend any time with SpO2 less than 89%. The desaturation event index was normal at 0.6. PHYSICIAN INTERPRETATION: The patient does not have evidence of significant nocturnal hypoxia while on supplemental oxygen at 2 liters/minute. MD LAMIN GONZALES/lisa /[id number] dtt: 12/24/16 1426 ARLIN RADU F dtd: 12/24/16 1352
--- NOTE | ~2016-12-21 | CATH ---
Demographics Patient Name ZIYAD Mabry Gender Female Date of 1930 Age 86 year(s) Patient Number [id number] Date of Study 12/22/2016 Visit Number [id number] Room Number G6[address] [place] [id number] Ht 152.4 cm Wt 73.1 kg Referring Wanda Quezada Primary Physician Physician Performing Filemon Guerra MD Secondary Physician Physician Diagnostic Filemon Guerra MD Assisting Physician Physician Interventional Physician Menhaden Fishing Crew Member Physician Addendum Added left renal documentation Findings and Conclusions Peripheral Findings and Conclusions Right renal single, large, normal Left renal single supply, medium, diffuse disease 20-30% Peripheral Recommendations Medical therapy Procedure Description The patient was brought to the diagnostic cardiac catheterization-EP laboratory in the fasting, non-sedated state. Informed consent was obtained in the written and verbal form after the risks and benefits were explained. The patient had no further questions and agreed to proceed. The planned puncture-incision site(s) were shaved and prepped with ChloraPrep and draped in the usual sterile manner. Conscious sedation, supplemental oxygen, and pain control medications were delivered by a registered nurse under physician guidance. Surface ECG rhythm, blood pressure measurement, and pulse oximetry were monitored throughout the procedure. Arterial access. The access site was infiltrated with lidocaine. The vessel was entered with the Seldinger technique. A sheath was advanced into the vessel and used for catheter placement. Selective left coronary angiography. A catheter was advanced into the left coronary vessel ostium under Fluoroscopic guidance. Contrast was injected by hand. Images were obtained in multiple projections. Selective right coronary angiography. A catheter was advanced into the right coronary vessel ostium under fluoroscopic guidance. Contrast was injected by hand. Images were obtained in multiple projections. Left heart catheterization. A catheter was advanced across the aortic valve to the left ventricle under fluoroscopic guidance. Resting hemodynamics were obtained. Selective Renal Angiography: Under fluoroscopic guidance a catheter was placed. Contrast was injected and images were obtained. Arterial artery hemostasis was achieved. The patient was transferred to a regular nursing floor via cart accompanied by a nurse. The patient left the laboratory in stable condition. Peripheral Procedure Description Selective Renal Angiography: Under fluoroscopic guidance a catheter was placed. Contrast was injected and images were obtained. Diagnostic Cath Status: Urgent Procedure Procedure Type Diagnostic procedure:Angiography:, Coronary Angios w/LHC Peripheral Cath Diagnostic Procedure:Renal Angiography:, Bilateral Miscellaneous Indications: Chest pain and Dizziness. The procedure was explained in detail to the patient. Risks, complications and alternative treatments were reviewed. Written consent was obtained. Angiographic Findings Dominance: Right Cardiac Arteries and Lesion Findings LMCA: Normal (0% Stenosis).large LAD: Normal (0% Stenosis).medium patent stents diag 1 small, 2 small medium normal LCx: Normal (0% Stenosis).large non-dominant, patent stent RCA: Normal (0% Stenosis).Large dominant, diffuse paque of 40% PL medium patent stent PDA medium normalThere is a previous stent on Mid subsection. Coronary Tree Procedure Data Procedure Date Date: 12/22/2016Start: 10:32 AM Entry Locations - Retrograde Percutaneous access was performed through the Right Femoral artery (Primary location). A 6 Fr sheath was inserted. Hemostasis was successfully obtained using Perclose ProGlide (REQQI). Closure Comments: and manual pressure by Ze Graham. Procedure Medications Order and Administration + + +---------+--------+ !Time !Medication !Dosage !Route ! + + +---------+--------+ !12/22/2016 10:37 AM!Fentanyl !25 mcg !I.V. ! + + +---------+--------+ 12/22/2016 10:34 AM!D5W 1000ml w/ 150 mEq Sodium Bicarb!219 ml/hr! ! + + +---------+--------+ !12/22/2016 10:49 AM!Heparin (ACC_3) ! ! ! + + +---------+--------+ Devices Used - A6 Fr. BS JL 4 Diag. Catheterwas used for:Left coronary angiography. - A6 Fr. BS JR 4 Diag. Catheterwas used for:Right coronary angiography. - A6 Fr. BS Angled Pigtail Diag. Catheterwas used for:Left Atrial Pressures. Contrast Material - Isovue 48976 ml Fluoroscopy Time: Diagnostic: 3:30 minutes. Total: 3:30 minutes. Fluoroscopy Dose: Diagnostic: 605 mGy. Total: 605 mGy. Estimated Blood Loss: 5 ml. Medical History Allergies - Other:(corticosteroids, methylprednisolne). - Other:(corticosteroids, prednisone). Risk Factors The patient risk factors include:prior PCI on 02/23/2016;hypercholesterolemia, hypertension, family history of premature CAD, last creatinine: 2 mg/dl, creatinine clearance: 22.87 ml/min, dyslipidemia and prior heart failure . Admission Data Admission Date: 12/21/2016 Admission Time: 02:14 PM Insurance Payors: Medicare. Clinical Evaluation Leading to Procedure Diagnosed on 12/22/2016 12:00 AM. - The patient's CAD presentation was assessed as: Unstable angina. - The patient's anginal syndrome during the past two weeks was assessed as: Class III according to the Meagher Cardiovascular Society Classification System (CCS). Anti-anginal medications were prescribed during the past two weeks. Hemodynamics Condition: Rest O2 Consumption: Estimated: 145.08Heart Rate: 62 bpm Pressures (mmHg) +-----+ + !Site !Pressure ! +-----+ + !AO !225/78 (119) ! +-----+ + !LV !219/6 ,19 ! +-----+ + !LV !217/5 ,19 ! +-----+ + !AO !225/81 (136) ! +-----+ + !LV !216/6 ,20 ! +-----+ + Valve Gradients and Areas + +---------+---------+---------+ +---------+ + !Valve !Peak !Mean !Area !Index !Flow !Source ! + +---------+---------+---------+ +---------+ + !Aortic !0 !0 ! ! ! ! ! + +---------+---------+---------+ +---------+ + !Aortic !0 !0 ! ! ! ! ! + +---------+---------+---------+ +---------+ + Shunts Oxygen Values O2 Consumption 145.08 Discharge Data Discharge Date: 12/24/2016 Hospital Status: Inpatient Signatures dtt: Charlie Colbert (cardio) dtd: 12/22/16 1032 Physician Self Edit
--- NOTE | ~2016-12-21 | PUL ---
PATIENT'S NAME: BASIA LACKEY [facility] AGE: 86 Y [address] 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 The patient walked for 500 feet at a pace of 0.95 miles/hour. She used a walker as a supportive device. Her oxygen saturation the beginning of the test was 95%, then dropped to 93% during the test, and was 96% after the test. She had appropriate increases in her heart rate and blood pressure. Her perceived dyspnea was 6/10 on the Angelita scale. PHYSICIAN INTERPRETATION: The patient has moderate limitation in her exercise capacity without significant desaturations or hypoxia on room air during exercise. MD LAMIN GONZALES/lisa /[id number] dtt: 12/24/16 1428 , PAUL OLIVEROS dtd: 12/24/16 1358
--- NOTE | ~2016-12-21 | PUL ---
PATIENT'S NAME: BASIA LACKEY [facility] AGE: 86 Y [address] 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 FVC was 1.91 liters which is 106% of predicted and normal, FEV1 was 1.3 liters which is 100% of predicted and normal and FEV1/FVC was 68%. After bronchodilator administration FVC increased to 1.92 liters which is a 1% increase and FEV1 increased to 1.43 liters which is a 10% increase. FEV1/FVC was 74%. 2. DLCO was 10.4 with an adjusted DLCO of 10.3 which is 62% of predicted and normal for patient's demographics. 3. Total lung capacity was 4.28 liters which is 110% of predicted and normal, and residual volume was 2.28 liters which is 130% of predicted and normal. PHYSICIAN INTERPRETATION: The patient has no airflow limitation as per ATS/ERS criteria. There is no significant bronchodilator response. Her diffusion capacity is normal. There is no evidence of restrictive lung disease. MD LAMIN GONZALES/lisa /[id number] dtt: 12/24/16 1430 , PAUL OLIVEROS dtd: 12/24/16 1356
--- NOTE | ~2016-12-21 | ER ---
PATIENT'S NAME: ZIYADBASIA VIDAL [facility] AGE: 86 Y [address] ROOM: [place] [address] LOCATION: GPCU ADMIT DATE: 12/21/2016 ER/Outpatient Report DISCHARGE DATE: FAMILY PHYSICIAN: JILLIAN MUÑOZ MD ATTENDING PHYSICIAN: JILLIAN MUÑOZ Time of Arrival: 1016 hours. Time of Evaluation: 1016 hours. CHIEF COMPLAINT: Chest pain. HISTORY OF PRESENT ILLNESS: The patient is an 86-year-old female who presents to the emergency department today with chief complaint of chest pain. She also reports she has a near- syncope. She reports she feels short of breath as well. She reports about 2 hours prior to arrival, she had an episode where she felt like she was going to pass out. Her son does report that she acted like she was nearly passed out and then came through. She was diaphoretic with that as well. She also had chest pain. She was transferred in here. She did receive aspirin prior to arrival. The patient upon arrival here denies any chest pain. She denies any fevers or chills. No nausea or vomiting. No diarrhea or constipation. PAST MEDICAL HISTORY: Diastolic congestive heart failure, nocturnal hypoxia, on home O2 at night, arthritis, coronary artery disease, hypertension, atrial fibrillation, chronic kidney disease, deep vein thrombosis, and spinal stenosis. PAST SURGICAL HISTORY: Stents, heart cath , and back surgery. SOCIAL HISTORY: The patient lives in [place]. Denies any tobacco, alcohol, or illicit drug use. FAMILY HISTORY: Coronary artery disease. ALLERGIES: NO KNOWN DRUG ALLERGIES. MEDICATIONS: Please see list. PRIMARY CARE DOCTOR: PATIENT'S NAME: [facility] BASIA E [facility] AGE: 86 Y [address] ROOM: [place] [address] LOCATION: GPCU ADMIT DATE: 12/21/2016 ER/Outpatient Report DISCHARGE DATE: FAMILY PHYSICIAN: JILLIAN MUÑOZ MD ATTENDING PHYSICIAN: JILLIAN MUÑOZ Dr.. DECKHAND ENGINEER: Dr. Colbert. REVIEW OF SYSTEMS: All systems are reviewed by myself and negative with the exception of those discussed in HPI and past medical history. PHYSICAL EXAMINATION: VITAL SIGNS: Weight 74.2 kg, blood pressure 153/63, pulse 57, respiratory rate 20, temperature 97.5, oxygen saturation 100% on room air. GENERAL: The patient is an 86-year-old female, who appears her stated age, in no acute distress at this time. HEENT: Normocephalic, atraumatic. Pupils are equal, round, and reactive to light. NECK: Supple. There is no nuchal rigidity. CARDIOVASCULAR: Bradycardic. LUNGS: Clear to auscultation bilaterally. No wheezes, rales, or rhonchi. ABDOMEN: Soft, nontender, and nondistended. No rebound, rigidity, or guarding. MUSCULOSKELETAL: The patient moves all 4 extremities. NEUROLOGICAL: GCS 15. Alert and oriented x4. SKIN: The patient does have nitroglycerin transdermal patch on the left upper chest wall otherwise no rashes or lesions are noted. LABORATORY DATA AND X-RAYS: Labs and x-rays are obtained. EKG is obtained and is interpreted by myself shows a sinus rhythm with a rate of 52, left axis deviation, with a MD interval of 248, otherwise normal intervals. There is no ST elevation, ST depression, T-wave inversions noted. CBC is unremarkable. CMP is unremarkable. LFTs are normal. The proBNP is normal. Coags are normal. D- dimer is normal. Cardiac enzymes are normal. Urinalysis shows 25 leukocyte esterase, otherwise unremarkable. Chest x-ray shows no acute process. A 2- hour cardiac enzymes are normal. Repeat EKG is obtained. It is also reviewed by myself. It does show evidence of a sinus rhythm with a rate of 58, there does appear to be PACs. Otherwise, no significant changes from previous. IMPRESSION: 1. Chest pain, rule out acute coronary syndrome. 2. Near syncope. 3. Hypotension, resolved. 4. History of atrial fibrillation. 5. Initial visit. PATIENT'S NAME: BASIA LACKEY [facility] AGE: 86 Y [address] ROOM: [id number] [place] [id number] LOCATION: GPCU ADMIT DATE: 12/21/2016 ER/Outpatient Report DISCHARGE DATE: FAMILY PHYSICIAN: JILLIAN MUÑOZ MD ATTENDING PHYSICIAN: JILLIAN MUÑOZ EMERGENCY DEPARTMENT COURSE: The patient was brought back to the examination room. Seen and evaluated by myself. IV was established. Laboratory analysis and imaging are obtained as described above. The patient was given aspirin prior to arrival. Laboratory analysis is received, the results are as described above. I have discussed results with the patient and her son who is at the bedside. The patient while being observed here in the emergency department, she did have an episode of near syncope. At that time, she was feeling lightheaded and feeling like she was going to pass out. Her blood pressure dropped into the 80s systolic. The nitroglycerin patch was removed and the patient was given a liter of bolus of fluids, this did resolve the patient's symptoms. I have discussed the case with Dr. Colbert, the patient's solar sales associate, he recommended admission to the hospital for further evaluation and treatment. I have contacted Dr. Muñoz, the patient's primary care doctor, he does agree to accept the patient for further evaluation treatment management. DISPOSITION: The patient is admitted under the care of Dr. Muñoz in conjunction with Dr. Colbert with Cardiology in stable condition. DO DANNA HERCULES/modl /[id number] d: 12/21/167 t: 12/22/16 0755, OUTPATIENT REPORT
--- NOTE | ~2016-12-21 | CON ---
PATIENT'S NAME: BASIA LACKEY [facility] AGE: 86 Y [address] ROOM: [address] [place], [place] [address] LOCATION: GPCU ADMIT DATE: 12/21/2016 Consultation DISCHARGE DATE: 12/24/2016 FAMILY PHYSICIAN: Fish Muñoz MD ATTENDING PHYSICIAN: Fish Muñoz DATE OF CONSULTATION: 12/23/2016 REFERRING PHYSICIAN: Charlie Colbert MD INDICATION: Dyspnea on exertion. HISTORY OF PRESENT ILLNESS: This is an 86-year-old female, admitted for chest pain, near syncope, and dyspnea on exertion. She reports near syncope twice, one of which occurred in the ER. There were no arrhythmias reported while she was on telemetry, but apparently she became hypotensive and symptoms improved with 1 L of fluid. She was subsequently taken to the track laborer and had a left heart catheterization, which was negative. CT of the chest was done, which showed no heart failure or pneumonia. There was a stable nodule noted since 2012. She has a history of CAD with PCI, PAF on amiodarone for several years and stopped on Wednesday, December 18, 2016. She also has history of diastolic heart failure with an EF last reported at 55%. She was previously in the hospital in November for a CHF exacerbation. Her BNP this admission was 184. The patient reports dyspnea on exertion for the last several years and slightly worse over the last year. Her daughter reports that she feels that her shortness of breath has worsened more so in the last few months. She has noted wheezing when she is out walking with her. She denies any history of asthma, COPD, or PE, DVT, or tobacco use. She has never tried inhalers. She was started on oxygen last year 2 L at night for CHF. She reports excessive daytime sleepiness and snoring. She has refused a sleep study in the past. She denies any hemoptysis, paroxysmal nocturnal dyspnea, orthopnea, or edema. She has an occasional cough with clear sputum. She has intermittent nasal drainage. PAST MEDICAL HISTORY: Includes paroxysmal AFib, off amiodarone now since December 18, 2016; hypertension; CAD; CKD; history of DVT; nocturnal hypoxia, wearing oxygen at night; chronic diastolic heart failure; spinal stenosis; arthritis; and anxiety. ALLERGIES: SEE NOV. MEDICATIONS: See NOV. PATIENT'S NAME: BASIA LACKEY [facility] AGE: 86 Y [address] ROOM: [facility] [place] [address] LOCATION: GPCU ADMIT DATE: 12/21/2016 Consultation DISCHARGE DATE: 12/24/2016 FAMILY PHYSICIAN: Fish Muñoz MD ATTENDING PHYSICIAN: Fish Muñoz FAMILY HISTORY: Her father at the age of 53 of pneumonia. Her mother at the age of 82 of kidney failure. She had a brother who of leukemia and another brother who of lung cancer. SOCIAL HISTORY: She denies any tobacco use. REVIEW OF SYSTEMS: A 12-point review of systems was negative except what is noted in the HPI. PHYSICAL EXAMINATION: VITAL SIGNS: Blood pressure 140/63, pulse 58, respirations 21, temperature 98.0, weight 74.2 kg. GENERAL: This is a well-developed, well-nourished, 86-year-old female, who is alert and oriented x3 and appears in no acute distress at the time of exam. HEENT: Head: Normocephalic and atraumatic. Eyes: Clear. NECK: Supple. No adenopathy. No carotid bruits or JVD. LUNGS: A few scattered wheezes. HEART: Regular rhythm with sinus bradycardia. No murmur, gallop, or rub. ABDOMEN: Soft, nontender, nondistended. Bowel sounds x4. EXTREMITIES: No cyanosis, clubbing, or edema. DIAGNOSTIC DATA: Sodium 137, potassium 3.7, bicarb 29, BUN 27, creatinine 1.3. WBC 6.4, hemoglobin 13.7, hematocrit 41, platelets 277. ASSESSMENT: 1. Dyspnea on exertion, probably multifactorial from elevated blood pressure and diastolic dysfunction. However, we cannot exclude reactive airway disease component. 2. Nocturnal hypoxia. 3. Excessive daytime sleepiness. 4. Suspected obstructive sleep apnea. 5. Hypertension, uncontrolled. PLAN: We will order PFTs and 6-minute walk to further evaluate other components of dyspnea on exertion other than the diastolic dysfunction and hypertension. We also checked an overnight oximetry on 2 L tonight to evaluate oxygen needs. Recommend more aggressive blood pressure control at this time. Thank you for the consult and opportunity to participate in the patient's care. PATIENT'S NAME: BASIA LACKEY [facility] AGE: 86 Y [address] ROOM: [address] [address] [facility] ADMIT DATE: 12/21/2016 Consultation DISCHARGE DATE: 12/24/2016 FAMILY PHYSICIAN: Fish Muñoz MD ATTENDING PHYSICIAN: Fish Muñoz ALEC SCOTT APRN FOR PAUL OLIVEROS MD [facility]/modl /[id number] d: 01/20/17 0053 t: 04/05/17 1643, CONSULTATION REPORT
[~2016-12-21 10:13] MED LIST changes: +CATAPRES0.2 MG PO; +K-TAB 10MEQ10 MEQ PO; +LEVOTHROID (SY50 MCG PO; +NITROSTAT0.4 MG SL; +OXYGEN M-15 INH; +TRIAMTERENE-HC1 EAC1 PO; +TYLENOL325 MG PO; +[UNRECOGNIZED DRUG - OTHER] PO
[2016-12-21 10:46] LABS: BASOPHIL # 0.1 K/uL (0.0-0.2); EOSINOPHIL # 0.2 K/uL (0.0-0.5); EOSINOPHIL % 2.3 %; HEMOGLOBIN 13.7 g/dL (10.0-15.0); IMMATURE GRANULOCYTE % 0.6 %; LYMPHOCYTE # 1.1 K/uL (0.8-4.0); LYMPHOCYTE % 16.2 %; MCH 31.1 pg (27.0-34.0); MCHC 33.4 gm/dL (32.0-36.5); MONOCYTE # 0.3 K/uL (0.0-1.0); MONOCYTE % 4.9 %; MPV 9.6 fl (9.4-12.4); NEUTROPHIL # (ANC) 5.2 K/uL (1.8-7.8); NRBC % 0 /100WBC (0-0.00); PLATELET COUNT 277 K/uL (150-450); RBC 4.41 M/uL (3.00-5.00); RDW-CV 13.6 % (11.9-14.6); WBC 6.9 K/uL (4.0-11.0)
[2016-12-21 10:55] LABS: PTT 26 SECONDS (25-32)
[2016-12-21 11:05] LABS: ALBUMIN 3.6 gm/dL (3.5-5.0); ALK PHOS 84 IU/L (33-138); ALT 35 IU/L (12-78); ANION GAP 14.4 (10.0-19.0); AST 20 IU/L (10-40); BLOOD UREA NITROGEN 31 mg/dL (6-24); CALCIUM 8.9 mg/dL (8.5-10.5); CHLORIDE 99 mMol/L (96-110); CO2 26 mMol/L (22-32); CPK 66 IU/L (21-215); ESTIMATED GFR (MDRD EQUATION) 24; MAGNESIUM 1.7 mg/dL (1.3-2.6); POTASSIUM 3.4 mMol/L (3.7-5.1); SODIUM 136 mMol/L (135-145); TOTAL BILIRUBIN 0.4 mg/dL (0.0-1.5); TOTAL PROTEIN 6.6 g/dL (6.0-8.4)
[2016-12-21 11:47] LABS: BILIRUBIN URINE NEGATIVE (NEGATIVE); BLOOD URINE NEGATIVE /UL (NEGATIVE); COLOR URINE YELLOW (YELLOW); GLUCOSE URINE NEGATIVE (NEGATIVE); KETONE URINE NEGATIVE (NEGATIVE); LEUKOCYTES URINE 25 /UL (NEGATIVE); NITRITE URINE NEGATIVE (NEGATIVE); PROTEIN URINE NEGATIVE (NEGATIVE); TURBIDITY URINE CLEAR (CLEAR); UROBILINOGEN URINE NORMAL (NORMAL)
[2016-12-21 12:15] LABS: AMORPHOUS URINE 1+ (NEGATIVE); BACTERIA URINE RARE (NEGATIVE); MUCUS URINE 1+ (NEGATIVE); RBC URINE 0-2 #/HPF (NEGATIVE)
[2016-12-21 12:53] LABS: CPK 61 IU/L (21-215)
--- NOTE | 2016-12-21 16:14 | NUR ---
PT is 86 y/o female admit for chest pain for . Pt alert and oriented x3, poor historian at times. Resides at home with her son and his family. Allergies to corticosteroids and prednisone. Hx dizziness,weakness,stents x4, htn,CHF,DVT,SOB,O2 at noc,incontinent-urine,anxiety,QAGAN TAYAGUNGIN. Plan is for possible cath tmw.
[2016-12-21 18:29] LABS: CPK 61 IU/L (21-215)
[2016-12-21] MEDS ORDERED: LASIX40 MG PO (19:08)
[2016-12-21] MEDS ORDERED: REFRESH TEARS15 ML OPHTH (19:10)
[2016-12-21] MEDS ORDERED: VALSARTAN-HCTZ1 EAC3 PO (19:11)
[2016-12-21] MEDS ORDERED: NITROGLYCERIN0.4 M1 TRANS (19:13)
--- NOTE | 2016-12-21 20:22 | NUR ---
Significant event: Patient A/O x3. VS stable, on 1L 02 per NC. Patient is a 2 assist pivot transfer. Up to bedside commode. Patient denies chest pain on admission. Orders for Sql Tech on 12/22/16. Permits on chart not signed, Risks and Benefits needed. Patient NPO at midnight. Has Heparin infusing at 900units/hr with a PTTHP draw next at 0200. Patient has Nitro Patch to R) chest. Patient pleasant and cooperative with cares. Family supportive at bedside.
[2016-12-22 00:25] LABS: CPK 57 IU/L (21-215)
--- NOTE | 2016-12-22 04:06 | NUR ---
Significant Event: VSS, PT AFEBRILE. UP TO BATHROOM WITH 1 ASSIST-PT REFUSED BEDSIDE COMMODE. NO CO PAIN OR DISCOMFORT. ORTHOSTATIC BLOOD PRESSURES DONE AT BEDTIME. 1/2 NS RUNNING AT 70ML/HR, HEPARIN RUNNING AT 700 UNITS/HR WITH NEXT PTTHP AT 0945. PT ALERT AND ORIENTED. NPO SINCE MIDNIGHT AND CLIPPER PREPPED FOR HEART CATH. PLACED ON 2L 02 AT NIGHT, 1L DURING THE DAY WITH SATS IN THE UPPER 90'S. Follow up:
[2016-12-22 06:09] LABS: CPK 59 IU/L (21-215)
[2016-12-22 06:14] LABS: ALBUMIN 3.2 gm/dL (3.5-5.0); ANION GAP 13.9 (10.0-19.0); CALCIUM 8.8 mg/dL (8.5-10.5); CREATININE 1.4 mg/dL (0.5-1.1); MAGNESIUM 1.9 mg/dL (1.3-2.6); POTASSIUM 3.9 mMol/L (3.7-5.1)
--- NOTE | 2016-12-22 12:58 | NUR ---
Introduced self and role of care management to patient's daughter. 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 Patient lives in [place] with her son. She is normally able to do all her own ADL's. Her family does assist if needed. She uses a cane and does have a walker if needed. Her daughter plans on her returning home on discharge. She denies any needs at this time. Will continue to follow.
--- NOTE | 2016-12-22 21:37 | NUR ---
Significant Event: Patient A/O x3. VS stable on RA. Hypertensive at times. Patient is 1 assist gaitbelt transfer. label stitcher this shift. Dressing to R) groin, no hematoma, no swelling, warm and no drainage. Denies numbness or tingling. Bicarb stopped after the 6 hour infusion. IV to ) hand and L) FA. One time order for Norvasc 5mg for High blood pressures per Dr. Jansen. Patient has been up to the bathroom. CT of the chest done at 1800. Patient pleasant and cooperative with cares. Family supportive at bedside.
--- NOTE | 2016-12-23 03:45 | NUR ---
Significant Event: VSS, PT AFEBRILE. NO CO PAIN OR DISCOMFORT. RIGHT GROIN IS SOFT WITH NO BRUISING OR HEMATOMA. PT ON RA DURING DAY BUT 2L 02 AT NIGHT. CONTINUES TO BE SOB ON EXERTION. NS RUNNING AT 70ML/HR. UP TO BATHROOM WITH ONE ASSIST, GAIT BELT AND WALKER-PT DOES WELL. Follow up:
[2016-12-23 07:40] LABS: ALBUMIN 3.5 gm/dL (3.5-5.0); ANION GAP 10.7 (10.0-19.0); CALCIUM 8.8 mg/dL (8.5-10.5); CREATININE 1.3 mg/dL (0.5-1.1); PHOSPHORUS 2.8 mg/dL (2.5-4.9); POTASSIUM 3.7 mMol/L (3.7-5.1)
--- NOTE | 2016-12-23 16:45 | NUR ---
Significant Event:Patient has not had any chest pain or syncopal episodes. Has ambulated with cardiac rehab, and been up to bathroom. At this time, is having PFT's and 6 minute walk. When walker with CR, patient ambulated 1/2 lap, able to visit, and then became more SOB when returned to chair. O2 sats 98%. Had Tylenol ES for headache this am. NS off, right groin is soft, bandaid to site that is dry and intact. SBP 150-190's. Dr. Chou saw today. Follow up:Overnight trend ox
--- NOTE | 2016-12-24 03:47 | NUR ---
Significant Event: A/O x3. Patient ambulates with SBA and walker. VSS on RA during day and 2L at night. Trend ox study in progress. Pulmonary Function Test yesterday. BP was 171/74 at 1845, called MD and received order for Norvasc 5 mg now and daily. Afebrile. Had 650mg tylenol for a headache at 1850. No compliants of pain since then. IV to L) hand SL. IV to L) forearm SL. Sluggish flush. R) groin is soft. Band-aid to site is C/D/I. No bruising. No complaints of chest pain or dizziness. Follow up: Continue with plan of care.
[2016-12-24 05:01] LABS: BASOPHIL # 0.1 K/uL (0.0-0.2); BASOPHIL % 1.3 %; EOSINOPHIL # 0.2 K/uL (0.0-0.5); HEMATOCRIT 35.2 % (30.0-46.0); HEMOGLOBIN 11.5 g/dL (10.0-15.0); IMMATURE GRANULOCYTE % 0.4 %; LYMPHOCYTE # 0.7 K/uL (0.8-4.0); LYMPHOCYTE % 13.3 %; MCH 30.9 pg (27.0-34.0); MCHC 32.7 gm/dL (32.0-36.5); MCV 94.6 fl (83.0-98.0); MONOCYTE # 0.4 K/uL (0.0-1.0); MONOCYTE % 8.3 %; MPV 9.6 fl (9.4-12.4); NEUTROPHIL # (ANC) 3.9 K/uL (1.8-7.8); NEUTROPHIL % 73.7 %; NRBC % 0 /100WBC (0-0.00); PLATELET COUNT 229 K/uL (150-450); RBC 3.72 M/uL (3.00-5.00); RDW-CV 13.8 % (11.9-14.6); WBC 5.3 K/uL (4.0-11.0)
[2016-12-24] MEDS ORDERED: NORVASC5 MG PO (12:16)
[2016-12-24] MEDS ORDERED: CEFUROXIME250 MG PO (12:22)
[2016-12-24] MEDS ORDERED: DIOVAN320 MG PO (12:24)
[2016-12-24] MEDS ORDERED: TYLENOL325 MG PO (12:26)
[2016-12-24] MEDS ORDERED: NYATA15 GM TOP (12:32)
[2016-12-24] MEDS ORDERED: PROVENTIL OR V6.7 GM INH (12:34)
== END 2016-12-24 13:15 | disposition disaster alternative care site (69) ==
LOC: GMED 10:13 → GPCU 14:14
PROVIDERS: Emergency Medicine; Internal Medicine Interventional Cardiology; Nurse Practitioner Acute Care; ADMIT Family Medicine
DX: R55 Syncope and collapse (principal); R06.09 Other forms of dyspnea; R09.02 Hypoxemia; I48.0 Paroxysmal atrial fibrillation; I25.10 Atherosclerotic heart disease of native coronary artery without angina pectoris; I13.0 Hypertensive heart and chronic kidney disease with heart failure and stage 1 through stage 4 chronic kidney disease, or unspecified chronic kidney disease; N18.9 Chronic kidney disease, unspecified; I50.30 Unspecified diastolic (congestive) heart failure; I82.409 Acute embolism and thrombosis of unspecified deep veins of unspecified lower extremity; I95.9 Hypotension, unspecified; M19.90 Unspecified osteoarthritis, unspecified site; M48.00 Spinal stenosis, site unspecified; M15.9 Polyosteoarthritis, unspecified; F41.9 Anxiety disorder, unspecified; R94.2 Abnormal results of pulmonary function studies; Z86.718 Personal history of other venous thrombosis and embolism; Z90.710 Acquired absence of both cervix and uterus; Z98.41 Cataract extraction status, right eye; Z98.42 Cataract extraction status, left eye; Z79.82 Long term (current) use of aspirin; Z79.899 Other long term (current) drug therapy; Z98.890 Other specified postprocedural states
CPT/HCPCS: C1760; G0378; J1644; J2250; J3010; J7060

== ENCOUNTER → 2017-02-05 | Outpatient (CLI) | payer MEDICARE ==
[~2017-02-05] MED LIST changes: +CEFUROXIME250 MG PO; +DIOVAN320 MG PO; +LASIX40 MG PO; +NITROGLYCERIN0.4 M1 TRANS; +NYATA15 GM TOP; +PROVENTIL OR V6.7 GM INH; +REFRESH TEARS15 ML OPHTH
[2017-02-05 11:05] LABS: BASOPHIL # 0.1 K/uL (0.0-0.2); BASOPHIL % 1.2 %; EOSINOPHIL # 0.2 K/uL (0.0-0.5); EOSINOPHIL % 3.1 %; HEMATOCRIT 39.1 % (30.0-46.0); HEMOGLOBIN 13.2 g/dL (10.0-15.0); IMMATURE GRANULOCYTE # 0.1 K/uL (0.0-0.3); IMMATURE GRANULOCYTE % 1.5 %; LYMPHOCYTE # 0.9 K/uL (0.8-4.0); LYMPHOCYTE % 15.7 %; MCH 31.5 pg (27.0-34.0); MCHC 33.8 gm/dL (32.0-36.5); MCV 93.3 fl (83.0-98.0); MONOCYTE # 0.6 K/uL (0.0-1.0); MONOCYTE % 10.5 %; MPV 9.5 fl (9.4-12.4); NRBC % 0 /100WBC (0-0.00); RBC 4.19 M/uL (3.00-5.00); RDW-CV 13.7 % (11.9-14.6); WBC 5.8 K/uL (4.0-11.0)
[2017-02-05 11:06] LABS: PLATELET COUNT 284 K/uL (150-450)
== END | disposition disaster alternative care site (69) ==
LOC: LCNC 10:49
PROVIDERS: Nurse Practitioner Acute Care
DX: Z79.899 Other long term (current) drug therapy (principal); E03.9 Hypothyroidism, unspecified

== ENCOUNTER → 2017-05-31 | Outpatient (CLI) | payer MEDICARE ==
[2017-05-31 16:51] LABS: BASOPHIL # 0.1 K/uL (0.0-0.2); BASOPHIL % 1.1 %; EOSINOPHIL # 0.2 K/uL (0.0-0.5); EOSINOPHIL % 2.2 %; HEMATOCRIT 40.4 % (30.0-46.0); HEMOGLOBIN 14.1 g/dL (10.0-15.0); IMMATURE GRANULOCYTE % 0.3 %; LYMPHOCYTE # 1.4 K/uL (0.8-4.0); MCHC 34.9 gm/dL (32.0-36.5); MCV 94.6 fl (83.0-98.0); MONOCYTE # 0.6 K/uL (0.0-1.0); MONOCYTE % 8.7 %; MPV 9.2 fl (9.4-12.4); NEUTROPHIL # (ANC) 5.1 K/uL (1.8-7.8); NEUTROPHIL % 68.7 %; NRBC % 0 /100WBC (0-0.00); PLATELET COUNT 310 K/uL (150-450); RBC 4.27 M/uL (3.00-5.00); RDW-CV 12.8 % (11.9-14.6); WBC 7.4 K/uL (4.0-11.0)
[2017-05-31 17:07] LABS: ALBUMIN 3.8 gm/dL (3.5-5.0); ANION GAP 10.6 (10.0-19.0); CALCIUM 9.6 mg/dL (8.5-10.5); CREATININE 1.6 mg/dL (0.5-1.1); POTASSIUM 4.6 mMol/L (3.7-5.1)
== END ==
LOC: LCNC 16:47
PROVIDERS: Internal Medicine Interventional Cardiology
DX: I10 Essential (primary) hypertension (principal); E03.9 Hypothyroidism, unspecified; E78.00 Pure hypercholesterolemia, unspecified